=== PATIENT | male | born 1955 | race African-American/Black ===

== ENCOUNTER 2017-09-22 19:11 | Emergency (ER) | payer MEDICAID, OTHER ==
--- NOTE | 2017-09-22 19:46 | RAD ---
RIGHT KNEE FOUR VIEWS: History: Right knee pain. FINDINGS/IMPRESSION: There are degenerative changes in the right knee. No acute fracture or dislocation is seen. A joint e ffusion is present. There is a well corticated 3 cm x 1.5 mm ossific density in the suprapatellar latonya ch. POS: [facility]
[2017-09-22] MEDS ORDERED: Acetaminophen 500 MG TAB ONE (19:58)
[2017-09-22] MEDS ORDERED: Ibuprofen 800 MG TAB ONE (19:58)
== END 2017-09-22 21:52 | disposition home or self-care (01) ==
LOC: ERS 19:11
DX: M25.561 Pain in right knee (principal); I10 Essential (primary) hypertension; E11.9 Type 2 diabetes mellitus without complications; M19.90 Unspecified osteoarthritis, unspecified site; F31.9 Bipolar disorder, unspecified; X50.1XXA Overexertion from prolonged static or awkward postures, initial encounter

== ENCOUNTER 2020-06-03 23:45 | Emergency (ER) | payer MEDICAID, OTHER ==
[2020-06-04] MEDS ORDERED: prednisoLONE 10 MG ODT TAB ONE (01:09)
[2020-06-04] MEDS ORDERED: HYDROcodone/Acetaminophen 5/325 mg Tablet ONE (01:09)
[2020-06-04] MEDS ORDERED: predniSONE 20 MG TAB ONE (01:16)
--- NOTE | 2020-06-04 08:31 | RAD ---
Exam:2 views right hip HISTORY: Pain. COMPARISON: None FINDINGS: Uncomplicated right hip arthroplasty. No fracture, cortical irregularity or periosteal reac tion. Visualized bony pelvis. Extensive atherosclerosis. IMPRESSION: Uncomplicated right hip arthroplasty.
--- NOTE | 2020-06-04 09:04 | RAD ---
Exam: 3 views of lumbar spine HISTORY: Pain. FINDINGS: 5 lumbar type vertebra. Lumbar spine vertebral body height is maintained. No fracture. No s pondylolisthesis or spondylolysis. Disc space heights are preserved Visualized sacrum and bony pelvis are intact. Incompletely evaluated bilateral hip arthroplasty. IMPRESSION: No radiographic abnormality. Additional imaging as warranted.
== END 2020-06-04 02:33 | disposition home or self-care (01) ==
LOC: ERS 23:45
DX: M54.41 Lumbago with sciatica, right side (principal); I10 Essential (primary) hypertension; E11.9 Type 2 diabetes mellitus without complications; M19.90 Unspecified osteoarthritis, unspecified site
CPT/HCPCS: 72100; J7510; J7512

== ENCOUNTER 2020-10-13 17:09 | Observation (INO) | payer MEDICARE, OTHER ==
[2020-10-13 18:18] LABS: Bilirubin Negative (Negative); Blood, Urine Negative (Negative); Clarity Clear (Clear); Glucose, Urine (Dipstick) Greater than 1000 mg/dL (Negative); Ketone, Urine Negative (Negative); Leukocyte Negative Leu/uL (Negative); Nitrite Negative (Negative); Protein, Urine (Dipstick) Negative (Neg-Trace); Specific Gravity, Urine 1.031 (1.002-1.036); Urobilinogen Normal mg/dL (Less than 2); pH, Urine 6.5 (5.0-9.0)
[2020-10-13 18:31] LABS: Actual Bicarbonate (HCO3v) 19 mEq/L (22-28); Analyzer IN Cardio ER; Base Excess -3.3 mEq/L (-2.0 to +3.0); Calcium, Ionized (venous) 1.01 mmol/L (1.16-1.32); Chloride (VBG) 93 mmol/L (98-106); Hemoglobin (Hb) 15.4 g/dL (12.6-17.4); Potassium (VBG) 4.49 mmol/L (3.70-5.30); Sodium 124.4 mmol/L (133-146); pH (venous) 7.45 (7.32-7.43)
[2020-10-13 18:31] LABS: Amphetamine Not Detected (NotDetected); Barbiturates Screen Not Detected (NotDetected); Benzodiazepine Screen Not Detected (NotDetected); Cocaine Metabolite Screen Detected (NotDetected); Medtox Control Line Valid? VALID (VALID); Medtox Reader # READER 4; Methadone Not Detected (NotDetected); Methamphetamine Not Detected (NotDetected); Opiate Screen Not Detected (NotDetected); Oxycodone Screen Not Detected (NotDetected); Phencyclidine (PCP) Not Detected (NotDetected); THC/Cannabinoid Screen Not Detected (NotDetected); Tricyclic Screen Not Detected (NotDetected)
[2020-10-13 18:36] LABS: #Basophils 0.1 thou/uL (0.0-0.2); #Eosinphils 0.1 thou/uL (0.0-0.7); #Lymphocytes 2.5 thou/uL (1.20-3.40); #Monocytes 0.5 thou/uL (0.11-0.59); %Eosinophils 1.3 % (0.0-10.0); %Lymphocytes 40.6 % (21.0-51.0); %Monocytes 7.3 % (0.0-10.0); %Neutrophils 49.8 % (42.0-75.0); Hemoglobin 14.4 g/dL (14.0-18.0); Mean Corpuscular HGB CONC 33.4 g/dL (32.0-36.0); Mean Corpuscular Hemoglobin 31.2 pg (27.0-31.0); Mean Corpuscular Volume 93.3 fL (78.0-98.0); Mean Platelet Volume 8.3 fL (7.4-10.4); Platelet Count 272 thou/uL (130-400); RBC Distribution Width 11.9 % (11.5-14.5); Red Blood Cell (RBC) Count 4.61 mill/uL (4.70-6.10); White Blood Cell (WBC) Count 6.1 thou/uL (4.8-10.8)
[2020-10-13 18:51] LABS: Acetaminophen Less than 6.0 mcg/mL (10.0-30.0); Alcohol Less than 10 mg/dL (Less than 10); Magnesium 2.2 mg/dL (1.6-2.6); Salicylate Less than 8.0 mg/dL (15.0-30.0)
[2020-10-13 18:54] LABS: ALT (SGPT) 25 U/L (8-55); AST (SGOT) 20 U/L (5-34); Albumin 4.1 g/dL (3.4-4.8); Alkaline Phosphatase 158 U/L (40-110); Anion Gap 16 mmol/L (10-20); BUN (Urea Nitrogen) 16 mg/dL (8.4-25.7); Bilirubin, Total 0.7 mg/dL (0.2-1.2); Calc. Creatinine Clearance 0 mL/min (70-130); Calcium 9.2 mg/dL (7.8-10.44); Carbon Dioxide 21 mmol/L (23-31); Chloride 93 mmol/L (98-107); Globulin 2.7 g/dL (2.4-3.5); Lipase 97 U/L (8-78); Potassium 4.7 mmol/L (3.5-5.1); Protein, Total 6.8 g/dL (5.8-8.1); Sodium 125 mmol/L (136-145)
[2020-10-13 19:06] LABS: Glucose 786 mg/dL (80-115)
[2020-10-13] MEDS ORDERED: Insulin Regular 300 UNITS/3 ML VIAL ONE (19:54)
[2020-10-13] MEDS ORDERED: Lactated Ringer's 1,000 ML IV SCH (20:45)
[2020-10-13] MEDS ORDERED: Dextrose 50% Abboject 50 ML SYRINGE SLOW IVP PRN (20:50)
[2020-10-13] MEDS ORDERED: Ondansetron PF 4 MG/2 ML Vial IVP PRN (20:50)
[2020-10-13] MEDS ORDERED: Dextrose 5% in Water 1,000 ML IV PRN (20:50)
[2020-10-13] MEDS ORDERED: Ondansetron ODT 4 MG TAB PO PRN (20:50)
[2020-10-13 21:29] LABS: Hemoglobin A1c Greater than 14.0 % (4.0-6.0)
[2020-10-13] MEDS ORDERED: Lantus 1000 UNITS/10 ML VIAL SC SCH (22:00)
[2020-10-13] MEDS: Atorvastatin Calcium 40 MG TAB PO SCH (23:05)
[2020-10-13] MEDS: Lactated Ringer's 1,000 ML IV SCH ×2 (23:06→23:50)
[2020-10-13] MEDS: Gabapentin 100 MG CAP PO SCH (23:07)
[2020-10-13] MEDS: HumaLOG 300 UNITS/3 ML VIAL SC PRN (23:08)
[2020-10-13] MEDS: Zolpidem Tartrate 5 MG TAB PO PRN (23:16)
[2020-10-13 23:26] VITALS: BMI 22.8
[2020-10-14] MEDS: HumaLOG 300 UNITS/3 ML VIAL SC PRN ×5 (02:53→20:46)
[2020-10-14 06:37] LABS: Hemoglobin 13.4 g/dL (14.0-18.0); Mean Corpuscular HGB CONC 35.7 g/dL (32.0-36.0); Mean Corpuscular Hemoglobin 32.8 pg (27.0-31.0); Mean Corpuscular Volume 91.8 fL (78.0-98.0); Mean Platelet Volume 7.8 fL (7.4-10.4); Platelet Count 230 thou/uL (130-400); RBC Distribution Width 11.8 % (11.5-14.5)
[2020-10-14 07:00] LABS: Eosinophils 3 % (0-10); Lymphocytes 53 % (21-51); MDiff Complete? YES; Monocytes 8 % (0-10); Neutrophil 36 % (42-75)
[2020-10-14 07:10] LABS: Anion Gap 13 mmol/L (10-20); BUN (Urea Nitrogen) 14 mg/dL (8.4-25.7); Calc. Creatinine Clearance 60 mL/min (70-130); Calcium 8.8 mg/dL (7.8-10.44); Carbon Dioxide 21 mmol/L (23-31); Chloride 106 mmol/L (98-107); Glucose 205 mg/dL (80-115); Potassium 3.7 mmol/L (3.5-5.1); Sodium 136 mmol/L (136-145)
[2020-10-14] MEDS: Gabapentin 100 MG CAP PO SCH ×3 (08:18→20:38)
[2020-10-14] MEDS: Amlodipine 5 MG TAB PO SCH (08:19)
[2020-10-14] MEDS: Enoxaparin Sodium 40 MG/0.4 ML SYRINGE SC SCH (08:20)
[2020-10-14] MEDS: Empagliflozin 10 MG TAB PO SCH (08:32)
[2020-10-14] MEDS: Lactated Ringer's 1,000 ML IV SCH ×2 (09:54→17:28)
[2020-10-14 11:06] LABS: SARS-CoV-2 PCR by NAA Not Detected (NotDetected)
[2020-10-14] MEDS: Acetaminophen 325 MG TAB PO PRN ×2 (14:32→20:40)
[2020-10-14] MEDS: Atorvastatin Calcium 40 MG TAB PO SCH (20:38)
[2020-10-14] MEDS: Zolpidem Tartrate 5 MG TAB PO PRN (20:39)
[2020-10-15] MEDS: Lactated Ringer's 1,000 ML IV SCH (01:45)
[2020-10-15] MEDS: HumaLOG 300 UNITS/3 ML VIAL SC PRN ×3 (05:39→13:20)
[2020-10-15 07:22] LABS: Anion Gap 12 mmol/L (10-20); BUN (Urea Nitrogen) 9 mg/dL (8.4-25.7); Calc. Creatinine Clearance 63 mL/min (70-130); Calcium 8.7 mg/dL (7.8-10.44); Carbon Dioxide 21 mmol/L (23-31); Chloride 107 mmol/L (98-107); Glucose 238 mg/dL (80-115); Potassium 3.6 mmol/L (3.5-5.1); Sodium 136 mmol/L (136-145)
[2020-10-15 08:03] LABS: Hemoglobin 13.4 g/dL (14.0-18.0); Mean Corpuscular HGB CONC 34.1 g/dL (32.0-36.0); Mean Corpuscular Hemoglobin 31.2 pg (27.0-31.0); Mean Corpuscular Volume 91.7 fL (78.0-98.0); Mean Platelet Volume 8.1 fL (7.4-10.4); Platelet Count 237 thou/uL (130-400); RBC Distribution Width 11.9 % (11.5-14.5); White Blood Cell (WBC) Count 5.9 thou/uL (4.8-10.8)
[2020-10-15 08:04] LABS: Eosinophils 1 % (0-10); Hypochromia SLIGHT = 6-15 cells (100X) (0-5/hpf); Lymphocytes 51 % (21-51); MDiff Complete? YES; Monocytes 3 % (0-10); Neutrophil 45 % (42-75); Platelet Morphology Comment Appears Adequate
[2020-10-15 08:30] VITALS: TEMP 97.5
[2020-10-15] MEDS: Gabapentin 100 MG CAP PO SCH (08:30)
[2020-10-15] MEDS: Amlodipine 5 MG TAB PO SCH (08:31)
[2020-10-15] MEDS: Enoxaparin Sodium 40 MG/0.4 ML SYRINGE SC SCH (08:32)
[2020-10-15] MEDS: Empagliflozin 10 MG TAB PO SCH (08:37)
[2020-10-15] MEDS ORDERED: Lantus 1000 UNITS/10 ML VIAL SC SCH ×3 (09:00)
[2020-10-15 14:08] VITALS: BP 159/71
== END 2020-10-15 14:09 | disposition home or self-care (01) ==
LOC: ERS 17:09 → T4-A 19:57
PROVIDERS: ADMIT Family Medicine; ATTEND Family Medicine
DX: N17.9 Acute kidney failure, unspecified (principal); E87.1 Hypo-osmolality and hyponatremia; E86.0 Dehydration; E11.40 Type 2 diabetes mellitus with diabetic neuropathy, unspecified; E11.65 Type 2 diabetes mellitus with hyperglycemia; I10 Essential (primary) hypertension; E78.5 Hyperlipidemia, unspecified; G47.00 Insomnia, unspecified; F14.90 Cocaine use, unspecified, uncomplicated; M54.30 Sciatica, unspecified side; M19.90 Unspecified osteoarthritis, unspecified site; D50.9 Iron deficiency anemia, unspecified; R45.851 Suicidal ideations; Z79.899 Other long term (current) drug therapy; Z66 Do not resuscitate; Z20.822 Contact with and (suspected) exposure to COVID-19
CPT/HCPCS: 80048 ×2; 80306; 80307; 81003; 82805; 82962 ×3; 83036; 83690; 83735; 83930; 84439; 84484; 85025 ×2; 87086; 93005; 96372 ×2; 99285; G0378 ×4; U0003; U0005; 36415; 36416; 80053; 84443; J1650; J1815

== ENCOUNTER 2022-09-01 08:45 | Inpatient (IN) | payer OTHER ==
[2022-09-01 09:09] LABS: Actual Bicarbonate (HCO3v) 25 mEq/L (22-28); Base Excess -0.2 mEq/L (-2.0 to +3.0); Calcium, Ionized (venous) 1.17 mmol/L (1.16-1.32); Chloride (VBG) 92 mmol/L (98-106); Hemoglobin (Hb) 14.9 g/dL (12.6-17.4); Potassium (VBG) 4.51 mmol/L (3.70-5.30)
[2022-09-01 09:12] LABS: #Basophils 0.1 thou/uL (0.0-0.2); #Eosinphils 0.1 thou/uL (0.0-0.7); #Lymphocytes 2.8 thou/uL (1.20-3.40); #Monocytes 0.3 thou/uL (0.11-0.59); #Neutrophils 2.7 thou/uL (1.40-6.50); %Basophils 1.2 % (0.0-1.0); %Eosinophils 1.6 % (0.0-10.0); %Lymphocytes 47.1 % (21.0-51.0); %Monocytes 5.3 % (0.0-10.0); %Neutrophils 44.9 % (42.0-75.0); Hemoglobin 14.2 g/dL (14.0-18.0); Mean Corpuscular HGB CONC 33.9 g/dL (32.0-36.0); Mean Corpuscular Hemoglobin 31.1 pg (27.0-31.0); Mean Corpuscular Volume 91.8 fl (78.0-98.0); Mean Platelet Volume 7.8 fL (7.4-10.4); Platelet Count 234 10x3/uL (130-400); RBC Distribution Width 11.9 % (11.5-14.5); Red Blood Cell (RBC) Count 4.57 mill/uL (4.70-6.10)
[2022-09-01 09:34] LABS: ALT (SGPT) 13 U/L (8-55); AST (SGOT) 14 U/L (5-34); Alkaline Phosphatase 162 U/L (40-110); Anion Gap 16 mmol/L (10-20); BUN (Urea Nitrogen) 13 mg/dL (8.4-25.7); Bilirubin, Total 0.6 mg/dL (0.2-1.2); Calc. Creatinine Clearance 0 mL/min (70-130); Calcium 9.8 mg/dL (7.8-10.44); Carbon Dioxide 23 mmol/L (23-31); Chloride 93 mmol/L (98-107); Estimated GFR 43; Globulin 2.9 g/dL (2.4-3.5); Potassium 4.5 mmol/L (3.5-5.1); Protein, Total 6.9 g/dL (5.8-8.1); Sodium 127 mmol/L (136-145)
[2022-09-01 09:35] LABS: Bilirubin Negative (Negative); Blood, Urine Negative (Negative); Clarity Clear (Clear); Glucose, Urine (Dipstick) Greater than 1000 mg/dL (Negative); Ketone, Urine Negative (Negative); Leukocyte Negative Leu/uL (Negative); Nitrite Negative (Negative); Protein, Urine (Dipstick) Negative (Neg-Trace); Specific Gravity, Urine 1.032 (1.002-1.036); Urobilinogen Normal mg/dL (Less than 2)
[2022-09-01 09:44] LABS: Glucose 682 mg/dL (80-115)
[2022-09-01] MEDS ORDERED: Insulin Glargine 30 UNITS/0.3 ML VIAL SC SCH (11:15)
[2022-09-01] MEDS ORDERED: Lactated Ringer's 1,000 ML IV SCH ×3 (11:30→18:00)
[2022-09-01] MEDS ORDERED: Acetaminophen 500 MG TAB ONE (11:35)
[2022-09-01] MEDS ORDERED: Ondansetron ODT 4 MG TAB PO PRN (12:02)
[2022-09-01] MEDS ORDERED: Ondansetron PF 4 MG/2 ML Vial IVP PRN (12:02)
[2022-09-01] MEDS ORDERED: Acetaminophen 325 MG TAB PO PRN (12:02)
[2022-09-01 12:04] VITALS: BMI 25.5
[2022-09-01] MEDS ORDERED: Dextrose 50% Abboject 50 ML SYRINGE SLOW IVP PRN (12:22)
[2022-09-01] MEDS ORDERED: Dextrose 5% in Water 1,000 ML IV PRN (12:22)
[2022-09-01] MEDS ORDERED: HumaLOG 300 UNITS/3 ML VIAL SC PRN (13:02)
[2022-09-01 14:08] LABS: Anion Gap 14 mmol/L (10-20); BUN (Urea Nitrogen) 13 mg/dL (8.4-25.7); Calc. Creatinine Clearance 45 mL/min (70-130); Calcium 9.5 mg/dL (7.8-10.44); Carbon Dioxide 24 mmol/L (23-31); Chloride 97 mmol/L (98-107); Estimated GFR 44; Potassium 4.2 mmol/L (3.5-5.1); Sodium 131 mmol/L (136-145)
[2022-09-01 14:10] LABS: Hemoglobin A1c Greater than 14.0 % (4.0-6.0)
[2022-09-01 14:23] LABS: Glucose 615 mg/dL (80-115)
[2022-09-01] MEDS ORDERED: HumaLOG 300 UNITS/3 ML VIAL SC SCH (14:30)
[2022-09-01] MEDS: HumaLOG 300 UNITS/3 ML VIAL SC PRN ×2 (14:35→15:48)
[2022-09-01 18:01] LABS: Anion Gap 11 mmol/L (10-20); BUN (Urea Nitrogen) 17 mg/dL (8.4-25.7); Calc. Creatinine Clearance 56 mL/min (70-130); Calcium 9.4 mg/dL (7.8-10.44); Carbon Dioxide 25 mmol/L (23-31); Chloride 102 mmol/L (98-107); Estimated GFR 57; Glucose 247 mg/dL (80-115); Potassium 3.8 mmol/L (3.5-5.1); Sodium 134 mmol/L (136-145)
[2022-09-01 22:25] LABS: Anion Gap 11 mmol/L (10-20); BUN (Urea Nitrogen) 14 mg/dL (8.4-25.7); Calc. Creatinine Clearance 61 mL/min (70-130); Calcium 8.8 mg/dL (7.8-10.44); Carbon Dioxide 24 mmol/L (23-31); Chloride 102 mmol/L (98-107); Estimated GFR 63; Glucose 238 mg/dL (80-115); Potassium 3.9 mmol/L (3.5-5.1); Sodium 133 mmol/L (136-145)
[2022-09-02 04:19] LABS: Anion Gap 10 mmol/L (10-20); BUN (Urea Nitrogen) 11 mg/dL (8.4-25.7); Calc. Creatinine Clearance 69 mL/min (70-130); Calcium 8.7 mg/dL (7.8-10.44); Carbon Dioxide 23 mmol/L (23-31); Chloride 102 mmol/L (98-107); Estimated GFR 72; Glucose 264 mg/dL (80-115); Potassium 3.4 mmol/L (3.5-5.1); Sodium 132 mmol/L (136-145)
[2022-09-02] MEDS: HumaLOG 300 UNITS/3 ML VIAL SC PRN ×2 (06:15→16:36)
[2022-09-02] MEDS ORDERED: Potassium Chloride 20 MEQ TAB PO SCH (07:45)
[2022-09-02] MEDS: Gabapentin 100 MG CAP PO SCH ×3 (08:04→20:50)
[2022-09-02] MEDS: Tamsulosin HCl 0.4 MG CAP PO SCH (08:04)
[2022-09-02] MEDS: Rosuvastatin 20 MG TAB PO SCH (08:04)
[2022-09-02] MEDS: Lisinopril/Hydrochlorothiazide 10 mg/12.5 mg Tablet PO SCH (08:05)
[2022-09-02] MEDS: metFORMIN XR 500 MG TAB PO SCH ×2 (08:05→20:50)
[2022-09-02] MEDS ORDERED: Insulin Glargine 30 UNITS/0.3 ML VIAL SC SCH (09:00)
[2022-09-03] MEDS: HumaLOG 300 UNITS/3 ML VIAL SC PRN ×2 (05:35→12:51)
[2022-09-03] MEDS: Gabapentin 100 MG CAP PO SCH (08:22)
[2022-09-03] MEDS: Tamsulosin HCl 0.4 MG CAP PO SCH (08:22)
[2022-09-03] MEDS: Rosuvastatin 20 MG TAB PO SCH (08:25)
[2022-09-03] MEDS: metFORMIN XR 500 MG TAB PO SCH (08:25)
[2022-09-03] MEDS: Lisinopril/Hydrochlorothiazide 10 mg/12.5 mg Tablet PO SCH (08:25)
[2022-09-03 08:51] LABS: Anion Gap 12 mmol/L (10-20); BUN (Urea Nitrogen) 9 mg/dL (8.4-25.7); Calc. Creatinine Clearance 71 mL/min (70-130); Carbon Dioxide 22 mmol/L (23-31); Chloride 104 mmol/L (98-107); Estimated GFR 75; Glucose 176 mg/dL (80-115); Potassium 3.6 mmol/L (3.5-5.1); Sodium 134 mmol/L (136-145)
[2022-09-03] MEDS ORDERED: Insulin Glargine 30 UNITS/0.3 ML VIAL SC SCH (09:00)
[2022-09-03] MEDS ORDERED: Potassium Chloride 20 MEQ TAB PO SCH (09:30)
[2022-09-03 12:20] VITALS: BP 124/79; TEMP 97.6
[2022-09-06 09:30] LABS: Sodium 119.4 mmol/L (133-146)
== END 2022-09-03 14:34 | disposition home or self-care (01) | DRG 638 ==
LOC: ERS 08:45 → T4-A 11:45 → OBSVTOIN 09-03 11:11
PROVIDERS: ADMIT Student in an Organized Health Care Education/Training Program; ATTEND Student in an Organized Health Care Education/Training Program
PROC: 4A133R1 Monitoring of Arterial Saturation, Peripheral, Percutaneous Approach (ICD-10-PCS; principal; 2022-09-03)
DX: E11.00 Type 2 diabetes mellitus with hyperosmolarity without nonketotic hyperglycemic-hyperosmolar coma (NKHHC) (principal); E87.1 Hypo-osmolality and hyponatremia; N17.9 Acute kidney failure, unspecified; Z20.822 Contact with and (suspected) exposure to COVID-19; F41.9 Anxiety disorder, unspecified; M19.90 Unspecified osteoarthritis, unspecified site; M54.9 Dorsalgia, unspecified; I10 Essential (primary) hypertension; D64.9 Anemia, unspecified; E78.5 Hyperlipidemia, unspecified; Z96.643 Presence of artificial hip joint, bilateral; Z79.4 Long term (current) use of insulin; Z79.899 Other long term (current) drug therapy; Z98.49 Cataract extraction status, unspecified eye; Z79.84 Long term (current) use of oral hypoglycemic drugs; Z82.49 Family history of ischemic heart disease and other diseases of the circulatory system; Z83.3 Family history of diabetes mellitus; E11.65 Type 2 diabetes mellitus with hyperglycemia
CPT/HCPCS: 36415; 36416; 80048; 80053; 81003; 82010; 82805; 83036; 83735; 83930; 84484; 85025; 93005; 96360; G0378; J1815; J7120